=== PATIENT | female | born 1975 | race Caucasian/White ===

== ENCOUNTER 2018-04-18 09:22 | Outpatient (CLI) | payer OTHER ==
[2018-04-18 12:21] LABS: TOTAL PROTEIN 6.7 g/dL (6.0-8.5)
== END 2018-04-18 09:25 ==
LOC: LAB 09:22
PROVIDERS: ATTEND Family Medicine
DX: Z00.00 Encounter for general adult medical examination without abnormal findings (principal)
CPT/HCPCS: 36415; 80053; 80061